=== PATIENT | male | born 1985 | race Two or more races ===

== ENCOUNTER → 2023-06-12 | Emergency (ER) | payer OTHER ==
[~2023-06-12] VITALS: Wt 80.7 kg
[2023-06-12 14:06] LABS: HEMATOCRIT 45.5 % (39.0-48.0); HEMOGLOBIN 15.5 g/dL (13-16.00); MEAN CELL VOLUME 86.1 fL (80.0-100.00); MEAN CORPUSCULAR HEMOGLOBIN 29.3 pg (27.00-32.0); PLATELET COUNT 158 K/uL (150-450); RED BLOOD COUNT 5.29 M/uL (4.00-6.00); RED CELL DISTRIBUTION WIDTH 13.2 % (11.5-14.5)
== END | disposition home or self-care (01) ==
LOC: ER 11:02
PROVIDERS: General Practice
DX: B34.0 Adenovirus infection, unspecified (principal); Z20.822 Contact with and (suspected) exposure to COVID-19